=== PATIENT | male | born 1940 | race Asian ===

== ENCOUNTER 2021-01-25 11:43 | Emergency (ER) | payer OTHER ==
[~2021-01-25] VITALS: Ht 170.2 cm; Wt 75.5 kg
[~2021-01-25 11:43] MED LIST: ALLO-45 PO; ATOR40TA28 PO; CLOP75TA32 PO; GLIM4 PO; LOSA50TA37 PO; METF-911 PO; NITR0.4T52 SL; PIOG15TA6 PO; SIMV-261 PO
[2021-01-25] MEDS: TraMADol HCL 50 MG TABLET PO ONE (13:31)
[2021-01-25 15:45] VITALS: BP 144/91
== END 2021-01-25 16:47 | disposition home or self-care (01) ==
LOC: EMS 11:43
DX: S20.211A Contusion of right front wall of thorax, initial encounter (principal); E11.9 Type 2 diabetes mellitus without complications; I10 Essential (primary) hypertension; Z87.891 Personal history of nicotine dependence; Z86.73 Personal history of transient ischemic attack (TIA), and cerebral infarction without residual deficits; Z88.0 Allergy status to penicillin; Z79.84 Long term (current) use of oral hypoglycemic drugs; W05.0XXA Fall from non-moving wheelchair, initial encounter; Y93.89 Activity, other specified; Y92.89 Other specified places as the place of occurrence of the external cause; Y99.8 Other external cause status
CPT/HCPCS: 71101; 82962; 99283; 99285